=== PATIENT | male | born 1995 | race Caucasian/White ===

== ENCOUNTER 2022-10-18 23:47 | Emergency (ER) | payer OTHER ==
[~2022-10-18] VITALS: Ht 182.9 cm; Wt 80.0 kg
[2022-10-18 23:51] VITALS: BP 152/67; PULSE 76; RESP 18; TEMP 98.3; O2SAT 98
== END 2022-10-19 05:15 | disposition left against medical advice (07) ==
LOC: ER 23:47
DX: Z53.21 Procedure and treatment not carried out due to patient leaving prior to being seen by health care provider (principal)
CPT/HCPCS: 99281